=== PATIENT | male | born 1995 | race Caucasian/White ===

== ENCOUNTER 2017-09-15 16:30 | Emergency (ER) | payer OTHER ==
[2017-09-15] MEDS ORDERED: LORazepam 1 MG TAB PO ONE (17:00)
--- NOTE | 2017-09-15 17:01 | EDPHY ---
H & P Stated Complaint: cp,anxiety Time Seen by Provider: 09/15/17 17:01 HPI/ROS: HPI: This is a 21-year-old male who presents with Chief Complaint: Chest pain and anxiety Location: Body Quality: Anxiety Duration: 1 hour prior to arrival Signs and Symptoms: No Palpitations, no lower extremity edema, no recent distance travel, + dyspnea, no fever, no cough, no wheezing, no headache, no neck stiffness Timing: Sudden, rapidly improving Severity: Moderate to severe Context: Patient has a history of anxiety and depression reports compliance with Zoloft presents with sudden onset of anterior chest pressure, mild and nonradiating in nature, quickly accompanied by feeling flush, dizzy, tingling in his legs and arms, and then a rapid breathing pattern while 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 He took his last final today. Reports that he has had increased stress but has never had suffered from a panic attack before. He reports that the symptoms lasted approximately 30 min. He went to [facility] and they advised him to drive to [place] emergency room for further evaluation. Denies fever, neck stiffness, abdominal pain, body aches, nausea, vomiting, chills. Upon arrival to the emergency room, triage nurse had him take slow deep breaths he was able to slow his breathing pattern to a normal rate upon my examination. He reports after talking to me during the interview, his anxiety level has decreased and he feels much better. No history of lung disease. No history of recent long distance travel. Modifying Factors: None Comment: ROS: see HPI Constitutional: No fever, no chills, no weight loss Eyes: No blurred vision Respiratory: + shortness of breath, no cough Cardiovascular: No chest pain Gastrointestinal: No nausea, no vomiting, no diarrhea Genitourinary: No dysuria Extremities: No myalgias Neurologic: No weakness, no numbness Skin: No rashes Hematologic: No bruising, no bleeding MEDICAL/SURGICAL/SOCIAL HISTORY: Medical history: Anxiety and depression; take Zoloft Surgical history: tonsillectomy Social history: [employer] student CONSTITUTIONAL: Slightly anxious, well-appearing, teenage white male, polite, awake and alert, no obvious distress HEENT: Atraumatic and normocephalic, PERRL, EOMI. Tympanic membranes clear. Oropharynx clear, no exudate and moist pink mucosa. Airway patent. No lymphadenopathy. No meningismus. Cardiovascular: Normal S1/S2, regular rate, regular rhythm, without murmur rub or gallop. PULMONARY/CHEST: Symmetrical and nontender. Clear to auscultation bilaterally. Good air movement. No accessory muscle usage. ABDOMEN: Soft, nondistended, nontender, no rebound, no guarding, no peritoneal signs, no masses or organomegaly. No CVAT. EXTREMITIES: 2/2 pulses, strength 5/5, no deformities, no clubbing, no cyanosis or edema. NEUROLOGICAL: no focal neuro deficits. GCS 15. SKIN: Warm and dry, no erythema. no rash. Good capillary refill. Source: Patient Exam Limitations: No limitations - Personal History Current Tetanus Diphtheria and Acellular Pertussis (TDAP): Yes - Medical/Surgical History Other PMH: anxiety, tonsilectomy - Social History Smoking Status: Never smoked Constitutional: Initial Vital Signs Temperature (C) 36.6 C 09/15/17 16:41 Heart Rate 97 09/15/17 16:41 Respiratory Rate 22 H 09/15/17 16:41 Blood Pressure 123/86 H 09/15/17 16:41 O2 Sat (%) 99 09/15/17 16:41 O2 Delivery Mode Room Air Allergies/Adverse Reactions: ibuprofen Allergy (Verified 09/15/17 16:40) Home Medications: Medication Instructions Recorded Sertraline HCl 09/15/17 Medical Decision Making - Diagnostics EKG Interpretation: 12 lead EKG: Indication: Chest pressure Rhythm: Normal sinus rhythm, rate of 72 beats per minute [place]: Normal Intervals: Normal QRS: Normal ST segments: Normal T-waves: Normal INTERPRETATION: No acute ischemic changes The 12 lead EKG was interpreted by myself and with attending ED Course/Re-evaluation: EKG and oral medications ordered Vital signs stable upon arrival. Afebrile and no systemic signs. EKG shows no acute ischemic changes/arrhythmia Given p.o. 1 mg Ativan with complete resolution of symptoms. Monitored in the emergency room for 1.5 hours. Drinking p.o. fluids without difficulty and reports feeling better. Spoke with mother at bedside. This patient was seen under the supervision of my secondary supervising physician. I evaluated care for this patient independently. Discussed this patient with Dr. Becker who did not see the patient. Differential Diagnosis: Differential diagnosis includes but is not limited to anxiety, depression, hyperventilation syndrome, infectious process including viral syndrome and influenza, arrhythmias. - Data Points Medications Given: Discontinued Medications Lorazepam (Ativan) 1 mg PO EDNOW ONE Stop: 09/15/17 17:01 Last Admin: 09/15/17 17:07 Dose: 1 mg Departure - Departure Disposition: Home, Routine, Self-Care Clinical Impression: Hyperventilation syndrome, Panic anxiety syndrome Condition: Good Instructions: Hyperventilation (ED), Anxiety (ED), Panic Attack (ED) Additional Instructions: Continue to take Zoloft as directed per your primary care provider. If your anxiety continues to increase and you experience more panic attacks/ hyperventilation syndrome, please follow up with Psychiatry for further evaluation and recommendation of adjuvant therapy. Rest today and drink plenty of fluids. Referrals: PEYTON CRAIG [Other] - As per Instructions Fernando Gar MD [Medical Doctor] - As per Instructions
--- NOTE | 2017-09-15 17:05 | CPEKG ---
Heart Rate: 72 RR Interval: 833 P-R Interval: 144 QRSD Interval: 82 QT Interval: 356 QTC Interval: 390 P Tow: 31 QRS Tow: 81 T Wave Tow: 51 EKG Severity - NORMAL ECG - EKG Impression: SINUS RHYTHM Electronically Signed By: Robert Becker 15-Sep-2017 19:48:46
[2017-09-15 18:08] VITALS: BP 106/89; PULSE 81; RESP 18; TEMP 98.1; O2SAT 96
== END 2017-09-15 18:06 | disposition home or self-care (01) ==
DX: F41.0 Panic disorder [episodic paroxysmal anxiety] (principal); F45.8 Other somatoform disorders